=== PATIENT | male | born 1955 | race Caucasian/White ===

== ENCOUNTER 2017-09-12 15:42 | Emergency (ER) | payer BC ==
[~2017-09-12] VITALS: Ht 180.3 cm; Wt 72.6 kg
[~2017-09-12 15:42] MED LIST: CYCL10 PO; NAPR500 PO; Norco 5-325 Ta1 EACH PO
== END 2017-09-12 16:57 | disposition home or self-care (01) ==
LOC: ER 15:42
DX: S50.11XA Contusion of right forearm, initial encounter (principal); F17.200 Nicotine dependence, unspecified, uncomplicated; Z79.899 Other long term (current) drug therapy; W22.8XXA Striking against or struck by other objects, initial encounter
CPT/HCPCS: 73090; 99283

== ENCOUNTER 2022-11-19 18:23 | Emergency (ER) | payer MEDICARE, BC ==
[~2022-11-19] VITALS: Ht 177.8 cm; Wt 70.3 kg
[2022-11-19] MEDS ORDERED: AMOCLA875 PO (20:11)
== END 2022-11-19 20:40 | disposition home or self-care (01) ==
LOC: ER 18:23
DX: S62.630B Displaced fracture of distal phalanx of right index finger, initial encounter for open fracture (principal); W54.0XXA Bitten by dog, initial encounter; F17.200 Nicotine dependence, unspecified, uncomplicated; Z23 Encounter for immunization
CPT/HCPCS: 73140; 90714; A9270

== ENCOUNTER → 2023-05-13 | Outpatient (CLI) | payer MEDICARE, BC ==
[~2023-05-13] MED LIST changes: +AMOCLA875 PO
[2023-05-13 09:40] LABS: Source, Urine Clean Catch
[2023-05-13 10:36] LABS: Appearance, Urine Clear (Clear); Bilirubin, Urine Neg (Neg); Blood, Urine 1+ (Neg); Color, Urine Yellow (P-Yellow); Glucose Qualitative, Urine Neg (Neg); Ketones, Urine 1+ (Neg); Leukocyte Esterase, Urine Neg (Neg); Nitrite, Urine Neg (Neg); Protein, Urine Neg (Neg); Urobilinogen, Urine NORM (Normal)
[2023-05-13 10:57] LABS: Red Blood Cells, Urine 0-2 /hpf (0-2); White Blood Cells, Urine 0-2 /hpf (0-5)
[2023-05-13 10:58] LABS: Bacteria Rare /hpf; Squamous Epithelial Cells Not Seen /hpf (Few)
== END | disposition home or self-care (01) ==
LOC: LAB SHORT 09:39 → LAB 09:39
PROVIDERS: Internal Medicine
DX: R31.0 Gross hematuria (principal)
CPT/HCPCS: 81001

== ENCOUNTER → 2024-06-09 | Outpatient (CLI) | payer OTHER ==
[2024-06-12 07:05] LABS: CREATININE,URINE - PER 24H 1764 mg/d (800-2100); CREATININE,URINE - PER VOLUME 42 mg/dL; DOPAMINE,URINE - PER 24H 332 ug/d (71-485); DOPAMINE,URINE - PER VOLUME 79 ug/L; DOPAMINE,URINE - RATIO TO CRT 188 ug/g CRT (0-250); EPINEPHRINE,URINE - PER 24H 25 ug/d (1-14); EPINEPHRINE,URINE - PER VOLUME 6 ug/L; EPINEPHRINE,URN - RATIO TO CRT 14 ug/g CRT (0-20); HOURS COLLECTED 24 hr; NOREPINEPHRINE,UR - PER VOLUME 21 ug/L; NOREPINEPHRINE,URINE - PER 24H 88 ug/d (14-120); NOREPINEPHRINE,URN/CRT RATIO 50 ug/g CRT (0-45); TOTAL VOLUME 4200 mL
[2024-06-12 15:27] LABS: CREATININE, URINE - PER 24H 1764 mg/d (800-2100); CREATININE, URINE - PER VOLUME 42 mg/dL; HOURS COLLECTED 24 hr; TOTAL VOLUME 4200 mL; VANILLYLMANDELIC ACID -PER 24H 3.4 mg/d (0.0-7.0); VANILLYLMANDELIC ACID -PER VOL 0.8 mg/L; VANILLYLMANDELIC ACID -RAT CRT 2 mg/gCR (0-6)
[2024-06-13 02:12] LABS: CREATININE,URINE - PER 24H 1764 mg/d (800-2100); CREATININE,URINE - PER VOLUME 42 mg/dL; HOURS COLLECTED 24 hr; METANEPHRINE,UR - RATIO TO CRT 145 ug/g CRT (0-300); METANEPHRINE,URINE - PER 24H 256 ug/d (55-320); METANEPHRINE,URN - PER VOLUME 61 ug/L; NORMETANEPHRINE,U - PER VOLUME 129 ug/L; NORMETANEPHRINE,URN - PER 24H 542 ug/d (114-865); NORMETANEPHRINE,URN/CRT RATIO 307 ug/g CRT (0-400); TOTAL VOLUME 4200 mL
[2024-06-14 02:20] LABS: CORTISOL,U FREE - RATIO TO CRT 40.48 ug/g CRT; CORTISOL,URINE FREE - PER 24H 71.4 ug/d (<=60.0); CREATININE,URINE - PER 24H 1764 mg/d (800-2100); CREATININE,URINE - PER VOLUME 42 mg/dL; HOURS COLLECTED 24 hr; TOTAL VOLUME 4200 mL
== END | disposition home or self-care (01) ==
LOC: LAB 06:05 → LAB SHORT 06:05
PROVIDERS: Internal Medicine
DX: R79.89 Other specified abnormal findings of blood chemistry (principal)
CPT/HCPCS: 81050; 82384; 83835; 84585

== ENCOUNTER 2024-06-19 09:13 | Day surgery (SDC) | payer OTHER | END 2024-06-19 23:46 | disposition home or self-care (01) | LOC: WOUND 09:13 | DX: N30.41 Irradiation cystitis with hematuria (principal); J44.9 Chronic obstructive pulmonary disease, unspecified; F17.210 Nicotine dependence, cigarettes, uncomplicated; R31.0 Gross hematuria; Z88.8 Allergy status to other drugs, medicaments and biological substances | CPT/HCPCS: G0463 ==

== ENCOUNTER 2024-07-14 00:56 | Day surgery (SDC) | payer OTHER | END 2024-07-14 23:00 | disposition home or self-care (01) | LOC: HBO 00:56 | DX: N30.41 Irradiation cystitis with hematuria (principal) | CPT/HCPCS: G0277 ==

== ENCOUNTER 2024-07-17 02:36 | Day surgery (SDC) | payer OTHER | END 2024-07-17 23:17 | disposition home or self-care (01) | LOC: HBO 02:36 | DX: N30.41 Irradiation cystitis with hematuria (principal) | CPT/HCPCS: G0277 ==

== ENCOUNTER 2024-07-18 00:52 | Day surgery (SDC) | payer OTHER | END 2024-07-18 23:24 | disposition home or self-care (01) | LOC: HBO 00:52 | DX: N30.41 Irradiation cystitis with hematuria (principal) | CPT/HCPCS: G0277 ==

== ENCOUNTER 2024-07-19 01:05 | Day surgery (SDC) | payer OTHER | END 2024-07-19 22:56 | disposition home or self-care (01) | LOC: HBO 01:05 | DX: N30.41 Irradiation cystitis with hematuria (principal) | CPT/HCPCS: G0277 ==

== ENCOUNTER 2024-07-24 01:20 | Day surgery (SDC) | payer OTHER | END 2024-07-24 23:00 | disposition home or self-care (01) | LOC: HBO 01:20 | DX: N30.41 Irradiation cystitis with hematuria (principal) | CPT/HCPCS: G0277 ==

== ENCOUNTER 2024-07-25 05:27 | Day surgery (SDC) | payer OTHER | END 2024-07-25 23:55 | disposition home or self-care (01) | LOC: HBO 05:27 | DX: N30.41 Irradiation cystitis with hematuria (principal) | CPT/HCPCS: G0277 ==

== ENCOUNTER 2024-07-26 03:14 | Day surgery (SDC) | payer OTHER | END 2024-07-26 23:00 | disposition home or self-care (01) | LOC: HBO 03:14 | DX: N30.41 Irradiation cystitis with hematuria (principal) | CPT/HCPCS: G0277 ==

== ENCOUNTER 2024-07-27 10:12 | Day surgery (SDC) | payer OTHER | END 2024-07-27 23:00 | disposition home or self-care (01) | LOC: HBO 10:12 | DX: N30.41 Irradiation cystitis with hematuria (principal) | CPT/HCPCS: G0277 ==

== ENCOUNTER 2024-07-28 04:53 | Day surgery (SDC) | payer OTHER | END 2024-07-28 23:00 | disposition home or self-care (01) | LOC: HBO 04:53 | DX: N30.41 Irradiation cystitis with hematuria (principal) | CPT/HCPCS: G0277 ==

== ENCOUNTER 2024-07-31 05:52 | Day surgery (SDC) | payer OTHER | END 2024-07-31 23:00 | disposition home or self-care (01) | LOC: HBO 05:52 | DX: N30.41 Irradiation cystitis with hematuria (principal) | CPT/HCPCS: G0277 ==

== ENCOUNTER 2024-08-01 03:00 | Day surgery (SDC) | payer OTHER | END 2024-08-01 23:00 | disposition home or self-care (01) | LOC: HBO 03:00 | DX: N30.41 Irradiation cystitis with hematuria (principal) | CPT/HCPCS: G0277 ==

== ENCOUNTER 2024-08-02 03:41 | Day surgery (SDC) | payer OTHER | END 2024-08-02 23:00 | disposition home or self-care (01) | LOC: HBO 03:41 | PROC: 5A05121 Extracorporeal Hyperbaric Oxygenation, Intermittent (ICD-10-PCS; principal; 2024-08-02) | DX: N30.41 Irradiation cystitis with hematuria (principal); L59.8 Other specified disorders of the skin and subcutaneous tissue related to radiation; Y84.2 Radiological procedure and radiotherapy as the cause of abnormal reaction of the patient, or of later complication, without mention of misadventure at the time of the procedure | CPT/HCPCS: G0277 ==

== ENCOUNTER 2024-08-03 01:53 | Day surgery (SDC) | payer OTHER | END 2024-08-03 23:00 | disposition home or self-care (01) | LOC: HBO 01:53 | DX: N30.41 Irradiation cystitis with hematuria (principal) | CPT/HCPCS: G0277 ==

== ENCOUNTER 2024-08-04 03:33 | Day surgery (SDC) | payer OTHER | END 2024-08-04 23:00 | disposition home or self-care (01) | LOC: WOUND 03:33 | DX: N30.41 Irradiation cystitis with hematuria (principal); J44.9 Chronic obstructive pulmonary disease, unspecified | CPT/HCPCS: G0463 ==

== ENCOUNTER 2024-08-04 03:36 | Day surgery (SDC) | payer OTHER | END 2024-08-04 23:00 | disposition home or self-care (01) | LOC: HBO 03:36 | DX: N30.41 Irradiation cystitis with hematuria (principal) | CPT/HCPCS: G0277 ==

== ENCOUNTER 2024-08-07 03:12 | Day surgery (SDC) | payer OTHER | END 2024-08-07 23:00 | disposition home or self-care (01) | LOC: HBO 03:12 | DX: N30.41 Irradiation cystitis with hematuria (principal) | CPT/HCPCS: G0277 ==

== ENCOUNTER 2024-08-08 04:20 | Day surgery (SDC) | payer OTHER | END 2024-08-08 23:00 | disposition home or self-care (01) | LOC: HBO 04:20 | DX: N30.41 Irradiation cystitis with hematuria (principal) | CPT/HCPCS: G0277 ==

== ENCOUNTER 2024-08-10 05:30 | Day surgery (SDC) | payer OTHER | END 2024-08-10 23:00 | disposition home or self-care (01) | LOC: HBO 05:30 | DX: N30.41 Irradiation cystitis with hematuria (principal) | CPT/HCPCS: G0277 ==

== ENCOUNTER 2024-08-14 04:39 | Day surgery (SDC) | payer OTHER | END 2024-08-16 23:00 | disposition home or self-care (01) | LOC: HBO 04:39 | DX: N30.41 Irradiation cystitis with hematuria (principal) | CPT/HCPCS: G0277 ==

== ENCOUNTER 2024-08-21 03:01 | Day surgery (SDC) | payer OTHER | END 2024-08-21 23:00 | disposition home or self-care (01) | LOC: HBO 03:01 | DX: N30.41 Irradiation cystitis with hematuria (principal) | CPT/HCPCS: G0277 ==

== ENCOUNTER 2024-08-22 01:13 | Day surgery (SDC) | payer OTHER | END 2024-08-22 23:00 | disposition home or self-care (01) | LOC: HBO 01:13 | DX: N30.41 Irradiation cystitis with hematuria (principal) | CPT/HCPCS: G0277 ==

== ENCOUNTER 2024-08-24 04:30 | Day surgery (SDC) | payer OTHER | END 2024-08-24 23:00 | disposition home or self-care (01) | LOC: HBO 04:30 | DX: N30.41 Irradiation cystitis with hematuria (principal); D64.9 Anemia, unspecified; M25.512 Pain in left shoulder | CPT/HCPCS: 36415; 73030; 85025; G0277 ==

== ENCOUNTER 2024-08-25 04:32 | Day surgery (SDC) | payer OTHER | END 2024-08-25 23:00 | disposition home or self-care (01) | LOC: HBO 04:32 | DX: N30.41 Irradiation cystitis with hematuria (principal) | CPT/HCPCS: G0277 ==

== ENCOUNTER 2024-08-28 03:06 | Day surgery (SDC) | payer OTHER | END 2024-08-28 23:00 | disposition home or self-care (01) | LOC: HBO 03:06 | DX: N30.41 Irradiation cystitis with hematuria (principal) | CPT/HCPCS: G0277 ==

== ENCOUNTER 2024-08-28 03:30 | Day surgery (SDC) | payer OTHER | END 2024-08-28 23:00 | disposition home or self-care (01) | LOC: WOUND 03:30 | DX: N30.41 Irradiation cystitis with hematuria (principal); J44.9 Chronic obstructive pulmonary disease, unspecified; Z85.46 Personal history of malignant neoplasm of prostate | CPT/HCPCS: G0277; G0463 ==

== ENCOUNTER 2024-08-29 05:56 | Day surgery (SDC) | payer OTHER | END 2024-08-29 23:00 | disposition home or self-care (01) | LOC: HBO 05:56 | DX: N30.41 Irradiation cystitis with hematuria (principal) | CPT/HCPCS: G0277 ==

== ENCOUNTER 2024-08-30 00:50 | Day surgery (SDC) | payer OTHER | END 2024-08-30 23:00 | disposition home or self-care (01) | LOC: HBO 00:50 | DX: N30.41 Irradiation cystitis with hematuria (principal) | CPT/HCPCS: G0277 ==

== ENCOUNTER 2024-08-31 01:55 | Day surgery (SDC) | payer OTHER | END 2024-08-31 23:00 | disposition home or self-care (01) | LOC: HBO 01:55 | DX: N30.41 Irradiation cystitis with hematuria (principal); R31.0 Gross hematuria | CPT/HCPCS: G0277 ==

== ENCOUNTER 2024-09-01 06:13 | Day surgery (SDC) | payer OTHER | END 2024-09-01 23:00 | disposition home or self-care (01) | LOC: HBO 06:13 | DX: N30.41 Irradiation cystitis with hematuria (principal) | CPT/HCPCS: G0277 ==

== ENCOUNTER 2024-09-04 04:21 | Day surgery (SDC) | payer OTHER | END 2024-09-04 23:00 | disposition home or self-care (01) | LOC: HBO 04:21 | DX: N30.41 Irradiation cystitis with hematuria (principal) | CPT/HCPCS: G0277 ==

== ENCOUNTER 2024-09-05 08:19 | Day surgery (SDC) | payer OTHER | END 2024-09-05 23:00 | disposition home or self-care (01) | LOC: HBO 08:19 | DX: N30.41 Irradiation cystitis with hematuria (principal) | CPT/HCPCS: G0277 ==

== ENCOUNTER 2024-09-06 01:29 | Day surgery (SDC) | payer OTHER | END 2024-09-06 22:58 | disposition home or self-care (01) | LOC: HBO 01:29 | DX: N30.41 Irradiation cystitis with hematuria (principal) | CPT/HCPCS: G0277 ==

== ENCOUNTER 2024-09-11 03:59 | Day surgery (SDC) | payer OTHER | END 2024-09-11 23:00 | disposition home or self-care (01) | LOC: HBO 03:59 | DX: N30.41 Irradiation cystitis with hematuria (principal) | CPT/HCPCS: G0277 ==

== ENCOUNTER 2024-09-13 05:10 | Day surgery (SDC) | payer OTHER | END 2024-09-13 23:00 | disposition home or self-care (01) | LOC: HBO 05:10 | DX: N30.41 Irradiation cystitis with hematuria (principal) | CPT/HCPCS: G0277 ==

== ENCOUNTER → 2024-09-14 | Day surgery (SDC) | payer OTHER | LOC: HBO 04:45 | DX: N30.41 Irradiation cystitis with hematuria (principal) | CPT/HCPCS: G0277 ==

== ENCOUNTER 2024-09-15 03:19 | Day surgery (SDC) | payer OTHER | END 2024-09-15 23:00 | disposition home or self-care (01) | LOC: HBO 03:19 | DX: N30.41 Irradiation cystitis with hematuria (principal) | CPT/HCPCS: G0277 ==

== ENCOUNTER 2024-09-18 06:11 | Day surgery (SDC) | payer OTHER | END 2024-09-18 23:00 | disposition home or self-care (01) | LOC: HBO 06:11 | DX: N30.41 Irradiation cystitis with hematuria (principal) | CPT/HCPCS: G0277 ==

== ENCOUNTER 2024-09-19 05:22 | Day surgery (SDC) | payer OTHER | END 2024-09-19 23:00 | disposition home or self-care (01) | LOC: HBO 05:22 | DX: N30.41 Irradiation cystitis with hematuria (principal); J44.9 Chronic obstructive pulmonary disease, unspecified | CPT/HCPCS: G0277; G0463 ==

== ENCOUNTER 2024-09-19 05:27 | Day surgery (SDC) | payer OTHER | END 2024-09-19 23:00 | disposition home or self-care (01) | LOC: WOUND 05:27 | DX: N30.41 Irradiation cystitis with hematuria (principal); J44.9 Chronic obstructive pulmonary disease, unspecified | CPT/HCPCS: G0463 ==

== ENCOUNTER 2024-09-20 03:02 | Day surgery (SDC) | payer OTHER | END 2024-09-20 23:00 | disposition home or self-care (01) | LOC: HBO 03:02 | DX: N30.41 Irradiation cystitis with hematuria (principal) | CPT/HCPCS: G0277 ==